=== PATIENT | female | born 1935 | race Caucasian/White ===

== ENCOUNTER 2016-06-24 08:42 | Emergency (ER) | payer MEDICARE ==
[~2016-06-24] VITALS: Ht 165.1 cm; Wt 100.0 kg
[~2016-06-24 08:42] MED LIST: ACTOS15 MG PO; ACTOS30 MG PO; ASPIRIN325 MG PO; ATENOLOL25 MG PO; B12 LIQUID OR; BAYER ASPIRIN E81 MG PO; BYETTA10 MC1 SC; CALCIUM600 M1 PO; DIOVAN80 MG PO; EVISTA60 MG PO; FLUZONE SPLT1 M1 IM; FUROSEMIDE20 MG PO; IBUPROFEN800 MG PO; INSULIN SY0.5 MG/32 SC; IRBESARTAN150 MG PO; IRON27 MG PO; LANTUS; LANTUS100 MG/ML SC; LOVASTATIN40 M1 PO; METFORMIN500 M2 PO; MEVACOR20 MG PO; MOTRIN800 MG/TAB PO; NAPROSYN500 MG PO; NEXIUM40 M1 PO; PLAVIX75 MG PO; PROTONIX40 M2 PO; VITAMIN B-122500 MCG SC; VITAMIN B-625 MG PO
[2016-06-24] MEDS ORDERED: PIOGLITAZONE HC15 MG PO (09:14)
[2016-06-24] MEDS ORDERED: MULTI 501 PO (09:15)
[2016-06-24] MEDS ORDERED: ULTRAM50 M1 PO (10:15)
[2016-06-24 10:35] VITALS: BP 119/74
== END 2016-06-24 10:35 | disposition home or self-care (01) ==
LOC: ED 08:42
DX: S70.01XA Contusion of right hip, initial encounter (principal); S40.011A Contusion of right shoulder, initial encounter; S83.91XA Sprain of unspecified site of right knee, initial encounter; W01.190A Fall on same level from slipping, tripping and stumbling with subsequent striking against furniture, initial encounter; Y92.009 Unspecified place in unspecified non-institutional (private) residence as the place of occurrence of the external cause

== ENCOUNTER 2017-05-24 21:47 | Emergency (ER) | payer MEDICARE ==
[~2017-05-24] VITALS: Ht 165.1 cm; Wt 81.4 kg
[~2017-05-24 21:47] MED LIST changes: +MULTI 501 PO; +PIOGLITAZONE HC15 MG PO; +ULTRAM50 M1 PO
[2017-05-25 00:04] LABS: HEMATOCRIT 35.8 % (37.0-47.0); HEMOGLOBIN 11.8 g/dl (12.0-16.0); IMMATURE GRANULOCYTES 0.6 % (0.0-1.0); MEAN CELL VOLUME 92.5 fL CALC (80.0-100.0); MEAN CORPUSCULAR HGB 30.5 pG CALC (26.0-32.0); NEUT# 5.05 thou/uL (2.00-7.15); RED BLOOD COUNT 3.87 mill/uL (4.20-5.60); RED CELL DISTRI WIDTH 13.6 % (11.5-15.5)
[2017-05-25 00:12] LABS: ALBUMIN 3.2 g/dL (3.2-5.0); ALKALINE PHOSPHATASE 66 u/l (38-126); AMYLASE < 30 u/l (30-110); BUN 43 mg/dL (8-23); CHLORIDE 109 mmol/l (95-108); LIPASE 23 u/l (23-300); POTASSIUM 4.9 mmol/l (3.5-5.1); SGPT/ALT 42 u/l (11-66); SODIUM 140 mmol/l (137-146); TOTAL PROTEIN 5.6 g/dL (6.3-8.2)
[2017-05-25 00:14] LABS: ANION GAP 19 (6-22 (CALC)); BILIRUBIN, TOTAL 0.5 mg/dL (0.0-1.4); BUN/CREATININE RATIO 31 (12-20 (CALC)); CARBON DIOXIDE 17 mmol/l (22-30); CREATININE 1.4 mg/dL (0.5-1.0); GFR 36 ML/MIN (>=60 (CALC)); GFR FOR AFR.AMER. 44 ML/MIN (>=60 (CALC)); SGOT/AST 39 u/l (9-36)
[2017-05-25 00:55] LABS: URINE BILIRUBIN - DIPSTICK NEGATIVE (NEGATIVE); URINE BLOOD DIPSTICK NEGATIVE (NEGATIVE); URINE COLOR YELLOW; URINE GLUCOSE - DIPSTICK NEGATIVE (NEGATIVE); URINE KETONE TRACE mg/dL (NEGATIVE); URINE LEUK ESTERASE NEGATIVE (NEGATIVE); URINE NITRITE - DIPSTICK NEGATIVE (Negative); URINE PROTEIN - DIPSTICK NEGATIVE (NEG-TRACE); URINE SPECIFIC GRAVITY 1.015; URINE UROBILINOGEN - DIPSTICK 0.2 E.U./dL (0.2)
[2017-05-25 00:55] LABS: C. DIFFICILE TOXIN A&B NEGATIVE (NEGATIVE)
[2017-05-25 01:00] LABS: URINE CLARITY CLEAR
[2017-05-25] MEDS ORDERED: CIPROFLOXACN500 MG PO (02:34)
[2017-05-25 02:39] VITALS: BP 148/52
== END 2017-05-25 02:39 | disposition home or self-care (01) ==
LOC: ED 21:47
PROVIDERS: Emergency Medicine
DX: R19.7 Diarrhea, unspecified (principal); R10.10 Upper abdominal pain, unspecified; E11.9 Type 2 diabetes mellitus without complications; Z79.4 Long term (current) use of insulin; I10 Essential (primary) hypertension; K21.9 Gastro-esophageal reflux disease without esophagitis; E78.00 Pure hypercholesterolemia, unspecified; Z95.9 Presence of cardiac and vascular implant and graft, unspecified; Z79.82 Long term (current) use of aspirin